=== PATIENT | female | born 1960 | race African-American/Black ===

== ENCOUNTER 2019-04-25 14:54 | Emergency (ER) | payer BC ==
[~2019-04-25] VITALS: Ht 162.6 cm; Wt 71.7 kg
--- NOTE | 2019-04-25 15:00 | NUR ---
AT BEDSIDE FOR EVAL.
--- NOTE | 2019-04-25 15:02 | NUR ---
PT [id number], "C/O DIFFICULTY BREATHING, SICK/COUGHING X 1 WEEK" SPO2 98% ON RA. PT IS AAOX4, NOT IN RESPIRATORY DISTRESS, HOOKED TO MONITOR, V/S STABLE, KEPT RESTED AND COMFORTABLE, WILL CONTINUE TO MONITOR.
[2019-04-25] MEDS ORDERED: predniSONE 20 MG TABLET ONE (15:09)
[2019-04-25] MEDS: predniSONE 20 MG TABLET PO ONE (15:13)
[2019-04-25] MEDS ORDERED: ALBUTEROL FS 2.5 MG/3 ML VIAL.NEB ONE (15:14)
[2019-04-25] MEDS ORDERED: IPRATROPIUM NEB FS 0.5 MG/2.5 ML AMPUL.NEB ONE (15:14)
--- NOTE | 2019-04-25 15:15 | NUR ---
PT REFUSED TO DO EKG.
--- NOTE | 2019-04-25 15:15 | NUR ---
RT AT BEDSIDE FOR BREATHING TREATMENT.
[2019-04-25] MEDS: ALBUTEROL FS 2.5 MG/3 ML VIAL.NEB NEB ONE ×2 (15:17)
[2019-04-25] MEDS: IPRATROPIUM NEB FS 0.5 MG/2.5 ML AMPUL.NEB NEB ONE (15:17)
[2019-04-25 15:28] LABS: BASOPHILS # (AUTO) 0.1 /CMM (0.0-0.2); BASOPHILS % (AUTO) 2.8 % (0.0-2.0); EOSINOPHILS % (AUTO) 2.1 % (0.0-6.0); HEMATOCRIT 41 % (33-45); HEMOGLOBIN 13.7 g/dL (11.5-14.8); LYMPHOCYTES # (AUTO) 0.8 /CMM (0.8-4.8); LYMPHOCYTES % (AUTO) 23.7 % (20.0-44.0); MEAN CORPUSCULAR HGB CONC 33 g/dl (31.0-36.0); MEAN CORPUSCULAR VOLUME 91 fL (82-100); MONOCYTES # (AUTO) 0.3 /CMM (0.1-1.30); MONOCYTES % (AUTO) 7.6 % (2.0-12.0); NEUTROPHILS # (AUTO) 2.2 /CMM (1.8-8.9); NEUTROPHILS % (AUTO) 63.8 % (43.0-81.0); PLATELET COUNT (AUTO) 136 /CMM (150-450); RED BLOOD CELL COUNT(AUTO) 4.49 MIL/uL (4.0-5.2); WHITE BLOOD COUNT (AUTO) 3.5 K/uL (4.3-11.0)
[2019-04-25 15:34] LABS: CALCIUM, SERUM 9.4 mg/dL (8.5-10.1); CARBON DIOXIDE 29 mmol/L (21-32); CHLORIDE 104 mmol/L (98-107); CREATININE 0.9 mg/dL (0.6-1.3); GLUCOSE 94 mg/dL (74-106); POTASSIUM 3.6 mmol/L (3.5-5.1); SODIUM SERUM 140 mmol/L (136-145); UREA NITROGEN, BLOOD 19 mg/dL (7-18)
--- NOTE | 2019-04-25 15:39 | NUR ---
[employer] AT BEDSIDE FOR XRAY.
[2019-04-25 15:47] LABS: B-TYPE NATRIURETIC PEPTIDE 34 PG/ML (0-125)
--- NOTE | 2019-04-25 16:40 | NUR ---
Patient discharged to home in stable condition. Written and verbal after care instructions given. Patient verbalizes understanding of instruction.
[2019-04-25 16:41] VITALS: BP 122/81
== END 2019-04-25 16:41 | disposition home or self-care (01) ==
LOC: ER 14:56
DX: J45.909 Unspecified asthma, uncomplicated (principal); M06.9 Rheumatoid arthritis, unspecified; Z90.711 Acquired absence of uterus with remaining cervical stump; Z88.1 Allergy status to other antibiotic agents
CPT/HCPCS: 36415; 71045; 80048; 83880; 84484; 85025; 93005; 94640; 99284; J7512